=== PATIENT | female | born 1965 | race Caucasian/White ===

== ENCOUNTER 2016-12-11 11:39 | Emergency (ER) | payer BC ==
[~2016-12-11] VITALS: Ht 167.6 cm; Wt 87.1 kg
[2016-12-11 11:45] VITALS: BP_SYST 139
[2016-12-11 13:19] LABS: BILIRUBIN,URINE NEGATIVE (NEGATIVE); CLARITY/URINE CLEAR (CLEAR); COLOR,URINE YELLOW (YELLOW); GLUCOSE,URINE NEGATIVE (NEGATIVE); KETONES,URINE 1+ (NEGATIVE); LEUKOCYTE ESTERASE ,URINE NEGATIVE (NEGATIVE); NITRITE, URINE NEGATIVE (NEGATIVE); PH,URINE 5.5 (5.0-8.0); PROTEIN URINE NEGATIVE (NEGATIVE); UROBILINOGEN,URINE 0.2 (0.2-1.0)
[2016-12-11 13:21] LABS: HEMOGLOBIN 13.9 g/dL (12.0-16.0); MONOCYTES # (AUTO) 0.5 K/uL (0.0-1.0)
[2016-12-11 13:25] LABS: BLOOD, URINE TRACE (NEGATIVE)
[2016-12-11 13:25] LABS: BASOPHILS # (AUTO) 0.1 K/uL (0.0-0.2); BASOPHILS % (AUTO) 0.5 % (0.0-2.0); EOSINOPHILS % (AUTO) 0.4 % (0.0-4.0); HEMATOCRIT 43.1 % (36-48); LYMPHOCYTES # (AUTO) 2.5 K/uL (1.0-5.5); LYMPHOCYTES % (AUTO) 21.3 % (20.5-51.5); MEAN CORPUSCULAR HEMOGLOBIN 27 pg (27-31); MEAN CORPUSCULAR HGB CONC 32 % (32-36); MEAN CORPUSCULAR VOLUME 84 fL (79.0-98.0); MONOCYTES % (AUTO) 4.3 % (1.7-9.3); NEUTROPHILS # (AUTO) 8.4 K/uL (1.8-7.7); NEUTROPHILS % (AUTO) 73.5 % (40.0-70.0); PLATELET COUNT (AUTO) 405 K/uL (130-430); RED BLOOD CELL COUNT(AUTO) 5.14 MIL/uL (4.2-6.2); RED CELL DISTRIBUTION WIDTH 12.9 % (9.0-15.0); WHITE BLOOD COUNT (AUTO) 11.5 K/uL (4.8-10.8)
[2016-12-11 13:29] LABS: BACTERIA,URINE FEW /HPF (None Seen); RBC,URINE 0-3 /HPF (0-3); WBC,URINE 0-3 /HPF (0-3)
[2016-12-11 13:32] LABS: CREATININE 0.75 mg/dL (0.55-1.30); POTASSIUM 3.7 mmol/L (3.5-5.1)
[2016-12-11 13:36] LABS: ALBUMIN 4.2 g/dL (3.4-4.8); TOTAL BILIRUBIN 0.5 mg/dL (0.0-1.0); TOTAL PROTEIN, SERUM 8.4 g/dL (6.4-8.3)
[2016-12-11 14:57] VITALS: BP_SYST 189
== END 2016-12-11 14:57 | disposition home or self-care (01) ==
LOC: SED 11:39
DX: K80.50 Calculus of bile duct without cholangitis or cholecystitis without obstruction (principal)
CPT/HCPCS: 36415; 71020-TC; 80053; 81000-TC; 81025; 82150-TC; 83690-TC; 84703; 85025; 85610-TC; 85730-TC; 99285

== ENCOUNTER 2017-09-20 10:24 | Emergency (ER) | payer BC ==
[~2017-09-20] VITALS: Ht 167.6 cm; Wt 88.0 kg
--- NOTE | 2017-09-20 10:24 | NUR ---
CALLED FOR TRIAGE, PTS SPOUSE STATES SHE IS IN RESTROOM
--- NOTE | 2017-09-20 10:32 | NUR ---
CALLED FOR TRIAGE, PT STILL IN RESTROOM
[2017-09-20 10:36] VITALS: BP_SYST 158
--- NOTE | 2017-09-20 10:36 | NUR ---
BROUGHT BACK TO BED #1 AND TRIAGED. REPORT GIVEN TO JORGE
--- NOTE | 2017-09-20 10:58 | NUR ---
Report given to [place] by Radha SLADE
--- NOTE | 2017-09-20 10:58 | NUR ---
Pt report received from YANY Jang. Pt states that she doesn't feel her self and describes her head as feeling "weird and not right" x 1 week. Pt states that she has been dx with Vertigo in the past, but symptoms feel different. Denies syncope, no head trauma, no focal neurodeficits. Pt does state that her vision gets blurry, but no visual deficits at this time.
--- NOTE | 2017-09-20 11:10 | NUR ---
Dr. Joe at bedside to assess pt.
--- NOTE | 2017-09-20 12:00 | NUR ---
Pt denies c/o pain or discomfort, no needs verbalized at this time.
[2017-09-20 13:10] VITALS: BP_SYST 132
--- NOTE | 2017-09-20 13:10 | NUR ---
Patient given written and verbal discharge instructions and verbalizes understanding. ER MD discussed with patient the results and treatment provided. Patient in stable condition. ID arm band removed. No Rx given. Patient educated on pain management and to follow up with PMD. Pain Scale 0/10. Opportunity for questions provided and answered.
== END 2017-09-20 13:10 | disposition home or self-care (01) ==
LOC: SED 10:24
DX: R42 Dizziness and giddiness (principal); I10 Essential (primary) hypertension; Z90.49 Acquired absence of other specified parts of digestive tract
CPT/HCPCS: 70450-TC; 99284